=== PATIENT | female | born 1980 | race Caucasian/White ===

== ENCOUNTER 2019-05-02 12:49 | Emergency (ER) | payer OTHER ==
[2019-05-02 13:31] VITALS: BP 133/72
[2019-05-02] MEDS ORDERED: Albuterol/Ipratropium NEB.SOL* Albuterol 2.5 MG/Ipratropium 0.5 MG 3 ML INH ONE (13:34)
--- NOTE | 2019-05-02 14:06 | UC ---
General HPI - HPI Summary HPI Summary: 38-year-old female nonsmoker presents with 4 days history of cough, congestion, runny nose, sore throat and mild headache. She denies any measured fevers and is coughing up some greenish sputum. She is not short of breath. She denies any ill contacts. - History of Current Complaint Chief Complaint: UCGeneralIllness Stated Complaint: SORE THROAT Time Seen by Provider: 05/02/19 13:28 Hx Obtained From: Patient Hx Last Menstrual Period: 04/25/19, states it was irregular Pain Intensity: 8 - Allergy/Home Medications Allergies/Adverse Reactions: Allergies Allergy/AdvReac Type Severity Reaction Status Date / Time No Known Allergies Allergy Verified 05/02/19 13:23 PMH/Surg Hx/FS Hx/Imm Hx Previously Healthy: Yes - Surgical History Surgical History: Yes Surgery Procedure, Year, and Place: clavicle - Family History Known Family History: Positive: Non-Contributory - Social History Occupation: Employed Full-time Lives: With Family Alcohol Use: Occasionally Substance Use Type: None Smoking Status (MU): Former Smoker Length of Time of Smoking/Using Tobacco: 15 years Review of Systems All Other Systems Reviewed And Are Negative: Yes Constitutional: Negative: Fever Skin: Negative: Rash Eyes: Positive: Negative ENT: Positive: Sore Throat, Ear Ache, Nasal Discharge, Sinus Congestion. Negative: Sinus Pain/Tenderness Respiratory: Positive: Cough. Negative: Shortness Of Breath Cardiovascular: Positive: Negative Gastrointestinal: Positive: Negative Physical Exam Triage Information Reviewed: Yes Appearance: Well-Appearing, No Pain Distress, Well-Nourished Vital Signs: Initial Vital Signs Temp 98 F 05/02/19 13:23 Pulse 110 05/02/19 13:23 Resp 18 05/02/19 13:23 BP 133/72 05/02/19 13:23 Pulse Ox 96 05/02/19 13:23 Vital Signs Reviewed: Yes Eyes: Positive: Conjunctiva Clear ENT: Positive: Pharynx normal, Nasal congestion, Nasal drainage, TM dull - Right -sided serous effusion. Negative: TMs normal, Sinus tenderness Neck: Positive: Supple, Nontender, No Lymphadenopathy Respiratory: Positive: No respiratory distress, Wheezing - Mild, expiratory Cardiovascular: Positive: Tachycardia Musculoskeletal: Positive: Strength Intact Neurological: Positive: Alert Psychological Exam: Normal Skin Exam: Normal Course/Dx - Course Course Of Treatment: Upper respiratory symptoms likely viral in nature. No history of sick contact. Breathing treatment given here with improvement. Treat symptomatically. No antibiotic. - Differential Dx - Multi-Symptom Differential Diagnoses: Other - URI, pneumonia, sinusitis, bronchitis - Diagnoses Provider Diagnosis: Acute bronchitis Discharge - Sign-Out/Discharge Documenting (check all that apply): Patient Departure All imaging exams completed and their final reports reviewed: No Studies - Discharge Plan Condition: Improved Disposition: HOME Prescriptions: Albuterol HFA INHALER* [Ventolin HFA Inhaler*] 2 puff INH Q4H PRN #1 mdi PRN Reason: Sob/Wheezing Benzonatate CAP* [Tessalon 100 MG CAP*] 100 mg PO TID PRN #21 cap PRN Reason: Cough Dexamethasone TAB* [Decadron TAB*] 8 mg PO DAILY #8 tab Guaifenesin/Pseudoephedrne HCl [Mucinex D ER 1,200-120 mg Tab] 1 each PO BID PRN #14 tab.er.12h PRN Reason: Congestion Patient Education Materials: Acute Bronchitis (ED) Forms: *Work Release Referrals: [facility] [Outside] [facility] [Outside] Additional Instructions: Humidifier while sleeping. Avoid smoke and smokers. Return with high fevers, difficulty breathing, worse or other concerns. Call your doctor in the morning to schedule follow-up or follow-up with a [facility] who can see you generally in 1-2 days. - Billing Disposition and Condition Condition: IMPROVED Disposition: Home
== END 2019-05-02 14:00 | disposition home or self-care (01) ==
LOC: UCEAST 12:49
DX: J20.9 Acute bronchitis, unspecified (principal)
CPT/HCPCS: 99212; A9270-GY; G0463